=== PATIENT | female | born 1975 | race Caucasian/White ===

== ENCOUNTER 2016-10-29 02:37 | Inpatient (IN) | payer OTHER ==
--- NOTE | 2016-10-29 02:48 | HP ---
COWS - Scale Resting Pulse: 1= [place] 81-100 Sweatin= Beads of Sweat on Face Restless Observation: 3= Extraneous Movement Pupil Size: 1= Pupils >than Normal Bone or Joint Aches: 4=Acute Joint/Muscle Pain Runny Nose/ Eye Tearin= Runny Nose/Eyes GI Upset > 30mins: 2= Nausea/Diarrhea Tremor Observation: 2= Slight Tremor Visible Yawning Observation: 0= None Anxiety or Irritability: 2=Irritable/Anxious Goose Flesh Skin: 0=Smooth Skin COWS Score: 20 CIWA Score - CIWA Score Nausea/Vomitin-Mild Nausea/No Vomiting Muscle Tremors: 4-Moderate,w/Arms Extend Anxiety: 4-Mod. Anxious/Guarded Agitation: 4-Moderately Restless Paroxysmal Sweats: 4-Forehead w/Sweat Beads Orientation: 0-Oriented Tacttile Disturbances: 3-Moderate Itch/Numb/Burn Auditory Disturbances: 0-None Visual Disturbances: 0-None Headache: 2-Mild CIWA-Ar Total Score: 22 Admission [facility] - HPI Chief Complaint: WITHDRAWAL SX'S. SEEKING DETOX TXMENT. Allergies/Adverse Reactions: Allergies Allergy/AdvReac Type Severity Reaction Status Date / Time lithium AdvReac Verified 10/29/16 02:42 History of Present Illness: 41 Y.O. FEMALE WITH OPIOID AND ALCOHOLISM HERE FOR DETOX TXMENT. CLIENT LAST HERE 3 YEARS AGO. STATES LAST DETOX 1 YEAR AGO. SHE IS HERE FOR LEGAL REASONS AND HAS A COURT DATE ON 11/03/2016. SHE ALSO REPORTS SHE DOESNT HAVE AN "ALCOHOL PROBLEM" BUT DRINKS 4-5 COCKTAILS 3-4 TIMES A WEEK AND PAST HISTORY OF ALCOHOL DEPENDENCE NOTED. Exam Limitations: No Limitations - Ebola screening Have you traveled outside of the country in the last 21 days: No Have you had contact with anyone from an Ebola affected area: No Have you been sick,other than usual withdrawal symptoms: No Do you have a fever: No - Review of Systems Constitutional: Chills, Loss of Appetite, Malaise, Night Sweats EENT: reports: Nose Congestion Respiratory: reports: No Symptoms reported Cardiac: reports: No Symptoms Reported GI: reports: Constipated, Poor Appetite, Poor Fluid Intake, Abdominal cramping : reports: No Symptoms Reported Musculoskeletal: reports: Back Pain, Neck Pain Integumentary: reports: No Symptoms Reported Neuro: reports: No Symptoms reported Endocrine: reports: No Symptoms Reported Hematology: reports: No Symptoms Reported Psychiatric: reports: other (BIPOLAR) Other Systems: Reviewed and Negative Patient History - Patient Medical History Hx Anemia: Yes (PAST H/O) Hx Asthma: No Hx Chronic Obstructive Pulmonary Disease (COPD): No Hx Cancer: No Hx Cardiac Disorders: No Hx Congestive Heart Failure: No Hx Hypertension: No Hx Hypercholesterolemia: No Hx Pacemaker: No HX Cerebrovascular Accident: No Hx Seizures: No Hx Dementia: No Hx Diabetes: No Hx Gastrointestinal Disorders: No Hx Liver Disease: No Hx Genitourinary Disorders: No Hx Sexually Transmitted Disorders: Yes (chlymidia) Hx Renal Disease (ESRD): No Hx Thyroid Disease: No Hx Human Immunodeficiency Virus (HIV): No Hx Hepatitis C: No Hx Depression: No Hx Suicide Attempt: No Hx Bipolar Disorder: Yes (ON MED MGMT) Hx Schizophrenia: No Other Medical History: DENIES - Patient Surgical History Past Surgical History: Yes Hx Abdominal Surgery: Yes (RUPTURED CYST) Hx Section: No Hx Orthopedic Surgery: Yes (bunion removal-1999) Other Surgical History: ruptured ovarian cyst-2006,TERMINATION OF 2008 Anesthesia Reaction: No - PPD History Previous Implant?: Yes Documented Results: Negative w/proof Implanted On Prior R Admission?: Yes Date: 06/21/14 Results: 0MM PPD to be Administered?: Yes - Reproductive History Patient is a Female of Child Bearing Age (11 -55 yrs old): Yes Last Menstrual Period: 09/25/16 LMP comment: IRREG Patient : No (NEG CG) - Smoking Cessation Smoking history: Current every day smoker Have you smoked in the past 12 months: Yes Aproximately how many cigarettes per day: 20 Cigars Per Day: 0 Hx Chewing Tobacco Use: No Initiated information on smoking cessation: Yes 'Breaking Loose' booklet given: 10/29/16 - Substance & Tx. History Hx Alcohol Use: Yes Hx Substance Use: Yes Substance Use Type: Cocaine, Heroin, Opiates (OPI), Tranquilizers (TCA) Hx Substance Use Treatment: Yes (GUICHO POTTS) - Substances Abused HEROIN Route: Inhalation Frequency: Daily Amount used: 5 BAGS Age of first use: 37 Date of Last Use: 10/28/16 COCKTAILS Route: Oral Frequency: 3-6 times per week Amount used: 4-5 COCKTAILS ( BEERS, WINE COOLERS) Age of first use: 13 Date of Last Use: 10/28/16 COCAINE Route: Inhalation Frequency: Daily Amount used: 1GM Age of first use: 32 Date of Last Use: 10/28/16 OXYCODONE Route: Oral Frequency: 1-3 times last 30 days Amount used: 100MG Age of first use: 37 Date of Last Use: 10/28/16 Family Disease History - Family Disease History Family Disease History: Other: Father (ALCOHOL), Mother (ALCOHOL), Sister ( ALCOHOL) Admission Physical Exam [facility] - Physical General Appearance: Yes: Appropriately Dressed, Tremorous, Sweating, Anxious HEENTM: Yes: EOMI, Normocephalic, Normal Voice, EDUARDO, Pharynx Normal Respiratory: Yes: Chest Non-Tender, Lungs Clear, Normal Breath Sounds, No Respiratory Distress, No Accessory Muscle Use Breast: Yes: Breast Exam Deferred Cardiology: Yes: Regular Rhythm, Regular Rate, S1, S2 Abdominal: Yes: Normal Bowel Sounds, Non Tender, Flat, Soft Genitourinary: Yes: Within Normal Limits Back: Yes: Normal Inspection Musculoskeletal: Yes: full range of Motion, Gait Steady Extremities: Yes: Normal Capillary Refill, Normal Range of Motion, Non-Tender, Tremors Neurological: Yes: resident care associate II-XII NML intact, Fully Oriented, Alert, Motor Strength 5/5 Integumentary: Yes: Normal Color, Dry, Moist Lymphatic: Yes: Within Normal Limits - Diagnostic (1) Nicotine dependence Current Visit: No Status: Acute (2) Alcohol dependence with uncomplicated withdrawal Current Visit: Yes Status: Acute (3) Opioid dependence with withdrawal Current Visit: Yes Status: Acute (4) Cocaine dependence, uncomplicated Current Visit: Yes Status: Acute Cleared for Admission [facility] - Detox or Rehab [facility] Level of Care: Medically Managed Detox Regimen/Protocol: Methadone/Librium [facility] Breath Alcohol Content Breath Alcohol Content: 0 Vital Signs - Vital Signs Vital Signs Refused: No Temperature: 97.2 F Temperature Source: Oral Pulse Rate: 92 Respiratory Rate: 18 Blood Pressure: 114/78 BP Location: Left Arm Blood Pressure Position: Sitting - Height Height: 5 ft 2 in - Weight Weight: 48.988 kg Weight Measurement Method: Standing Scale Body Mass Index (BMI): 19.7 - Bowel Function Bowel Movement: No Urine Pregancy Test - Test Device Lot Number: [id number] Expiration Date: 04/26/18 - Control Horizontal Line in Upper Control Window?: Yes - Result Urine Test Results: Negative- NO Line Present Urine Drug Screen - Test Device Lot Number: [id number] Expiration Date: 05/27/18 - Control Is Test Valid: Yes - Results Drug Screen Negative: No Urine Drug Screen Results: BEN-Cocaine, OPI-Opiates, TCA-Tricyclic Antidepress, OXY-Oxycodone
[2016-10-29 03:03] VITALS: BMI 19.7
[2016-10-29] MEDS ORDERED: NICOTINE POLACRILEX 2 MG GUM BUC PRN (03:04)
[2016-10-29] MEDS ORDERED: MENTHOL/PHENOL 1 EACH UD MM PRN (03:04)
[2016-10-29] MEDS ORDERED: MAGNESIUM CITRATE 300 ML BOTTLE PO PRN (03:04)
[2016-10-29] MEDS ORDERED: chlordiazePOXIDE HCL 25 MG CAPSULE PO PRN (03:04)
[2016-10-29] MEDS ORDERED: P-EPHED 60MG/TRIPROLIDI 2.5MG TABLET PO PRN (03:04)
[2016-10-29] MEDS ORDERED: guaiFENesin/D-METHORPHAN HB 10 ML UNIT-DOSE CUPS PO PRN (03:04)
[2016-10-29] MEDS ORDERED: MAGNESIUM HYDROX 2400MG/30ML ORAL SUSPENSION 30 ML CUP PO PRN (03:04)
[2016-10-29] MEDS ORDERED: LOPERAMIDE HCL 2 MG CAPSULE PO PRN (03:04)
[2016-10-29] MEDS ORDERED: diphenhydrAMINE HCL 50 MG CAPSULE PO PRN (03:04)
[2016-10-29] MEDS ORDERED: ACETAMINOPHEN 325 MG TABLET (FP) PO PRN (03:04)
[2016-10-29] MEDS ORDERED: IBUPROFEN 400 MG TABLET (FP) PO PRN (03:04)
[2016-10-29] MEDS ORDERED: METHADONE HCL 10 MG TABLET (FOR DETOX USE ONLY) PO ONE ×3 (03:04→22:00)
[2016-10-29] MEDS ORDERED: MAG HYDROX/AL HYDROX/SIMETH 30 ML UNIT-DOSE CUP PO PRN (03:04)
[2016-10-29] MEDS: chlordiazePOXIDE HCL 25 MG CAPSULE PO SCH ×4 (04:41→22:25)
[2016-10-29] MEDS ORDERED: chlordiazePOXIDE HCL 25 MG CAPSULE PO SCH (05:00)
[2016-10-29] MEDS: hydrOXYzine PAMOATE 50 MG CAPSULE (FP) PO PRN ×2 (05:38→22:25)
--- NOTE | 2016-10-29 08:11 | CONSULT ---
[facility] Psychiatric Consult - Data Date of interview: 10/29/16 Admission source: [facility] Identifying data: This is 41 years old female with history of Bipolar disorder, intoxicated with: Alcohol, Opioids, Cocaine anhd Nicotine Substance Abuse History: - Smoking Cessation. Smoking history: Current every day smoker. Have you smoked in the past 12 months: Yes. Aproximately how many cigarettes per day: 20. Cigars Per Day: 0. Hx Chewing Tobacco Use: No. Initiated information on smoking cessation: Yes. 'Breaking Loose' booklet given : 10/29/16. - Substance & Tx. History. Hx Alcohol Use: Yes. Hx Substance Use : Yes. Substance Use Type: Cocaine, Heroin, Opiates (OPI), Tranquilizers (TCA) . Hx Substance Use Treatment: Yes (GUICHO POTTS). - Substances Abused. HEROIN. Route: Inhalation. Frequency: Daily. Amount used: 5 BAGS. Age of first use: 37. Date of Last Use: 10/28/16. COCKTAILS. Route: Oral. Frequency: 3-6 times per week. Amount used: 4-5 COCKTAILS ( BEERS, WINE COOLERS ). Age of first use: 13. Date of Last Use: 10/28/16. COCAINE. Route: Inhalation. Frequency: Daily. Amount used: 1GM. Age of first use: 32. Date of Last Use: 10/28/16. OXYCODONE. Route: Oral. Frequency: 1-3 times last 30 days. Amount used: 100MG. Age of first use: 37. Date of Last Use: 10/28/16 Medical History: UTI History Psychiatric History: Patient reports history of Bipolar disorder, reports no history of Psdychiatric hospitalizations, reports history of Taking [place] in the past, refusing to restart Bipolar medications Physical/Sexual Abuse/Trauma History: Denies Additional Comment: Observation. Detox Unit Care Protocol Mental Status Exam - Mental Status Exam Alert and Oriented to: Person Cognitive Function: Fair Patient Appearance: Unkempt Mood: Sad, Withdrawn Affect: Flat Patient Behavior: Sedated Speech Pattern: Delayed Voice Loudness: Mildly Soft/Quiet Thought Process: Circumstantial Thought Disorder: Being Controlled Hallucinations: Denies Suicidal Ideation: Denies Homicidal Ideation: Denies Insight/Judgement: Fair Sleep: Difficulty falling asleep Appetite: Fair Muscle strength/Tone: Mild Hypotonicity Gait/Station: Shuffling Additional Comments: Observation. Detox Unit Care Protocol Psychiatric Findings - Problem List ([place] 1, 2,3) (1) Alcohol dependence with uncomplicated withdrawal Current Visit: Yes Status: Acute (2) Cocaine dependence, uncomplicated Current Visit: Yes Status: Acute (3) Opioid dependence with withdrawal Current Visit: Yes Status: Acute (4) Bipolar disorder Current Visit: No Status: Acute (5) Heroin dependence Current Visit: No Status: Acute (6) Nicotine dependence Current Visit: No Status: Acute (7) Substance induced mood disorder Current Visit: No Status: Acute - Initial Treatment Plan Initial Treatment Plan: Observation. Detox Unit Care Protocol
[2016-10-29 10:13] LABS: MCH 29.6 pg (25.7-33.7); MCHC 33.8 g/dl (32.0-36.0); MEAN CELL VOLUME 87.6 fl (80-96); MEAN PLT VOLUME 7.5 fl (7.5-11.1); PLATELET COUNT 276 K/MM3 (134-434); RDW 14.9 % (11.6-15.6); WHITE BLOOD COUNT 7.6 K/mm3 (4.0-10.0)
[2016-10-29 10:39] LABS: ALBUMIN 3.6 g/dl (3.4-5.0); BILIRUBIN,TOTAL 0.3 mg/dL (0.2-1.0); CALCIUM 9.2 mg/dL (8.5-10.1); CREATININE 1.1 mg/dL (0.55-1.02); TOT PROT 6.6 g/dl (6.4-8.2)
[2016-10-29] MEDS: PRENATAL VITAMINS W/ FOLIC ACID TABLET (FP) PO SCH (11:08)
[2016-10-29] MEDS: NICOTINE 21 MG/24 HOURS TOPICAL PATCH TD SCH (11:08)
[2016-10-29 11:21] LABS: HIV 1 & 2 AB NEGATIVE; HIV 1 AGp24 NEGATIVE
--- NOTE | 2016-10-29 12:07 | PN ---
[facility] CIWA - CIWA Score Nausea/Vomitin-Mild Nausea/No Vomiting Muscle Tremors: 3 Anxiety: 2 Agitation: 0-Normal Activity Paroxysmal Sweats: 4-Forehead w/Sweat Beads Orientation: 3-Disoriented Date>2 days Tacttile Disturbances: 2-Mild Itch/Numbness/Burn Auditory Disturbances: 0-None Visual Disturbances: 2-Mild Sensitivity Headache: 0-None Present CIWA-Ar Total Score: 17 [facility] COWS - Scale Resting Pulse: 0= NV 80 or Below Sweatin=Flushed/Facial Moisture Restless Observation: 0= Sits Still Pupil Size: 0= Normal to Room Light Bone or Joint Aches: 2= Severe Diffuse Aches Runny Nose/ Eye Tearin= Nasal Congestion GI Upset > 30mins: 2= Nausea/Diarrhea Tremor Observation of Outstretched Hands: 2= Slight Tremor Visible Yawning Observation: 1= 1-2x During Session Anxiety or Irritability: 2=Irritable/Anxious Goose Flesh Skin: 3=Piloerection COWS Score: 15 S Progress Note (SOAP) Subjective: Sweating, Tremors, Interrupted sleep, Body Aches, Stomach Cramping, Diarrhea. Objective: Pt. Disoriented about Location and today's day / date. Pt. observed ambulating on unit. 10/29/16 12:04 Vital Signs Temperature 97.7 F 10/29/16 09:37 Pulse Rate 77 10/29/16 09:37 Respiratory Rate 16 10/29/16 09:37 Blood Pressure 98/63 10/29/16 09:37 O2 Sat by Pulse Oximetry (%) Laboratory Last Values WBC 7.6 K/mm3 (4.0-10.0) D 10/29/16 06:45 RBC 3.85 M/mm3 (3.60-5.2) 10/29/16 06:45 Hgb 11.4 GM/dL (10.7-15.3) 10/29/16 06:45 Hct 33.7 % (32.4-45.2) 10/29/16 06:45 MCV 87.6 fl (80-96) 10/29/16 06:45 MCHC 33.8 g/dl (32.0-36.0) 10/29/16 06:45 RDW 14.9 % (11.6-15.6) 10/29/16 06:45 Plt Count 276 K/MM3 (134-434) 10/29/16 06:45 MPV 7.5 fl (7.5-11.1) 10/29/16 06:45 Sodium 140 mmol/L (136-145) 10/29/16 06:45 Potassium 4.2 mmol/L (3.5-5.1) 10/29/16 06:45 Chloride 102 mmol/L (98-107) 10/29/16 06:45 Carbon Dioxide 30 mmol/L (21-32) 10/29/16 06:45 Anion Gap 8 (8-16) 10/29/16 06:45 BUN 22 mg/dL (7-18) H D 10/29/16 06:45 Creatinine 1.1 mg/dL (0.55-1.02) H D 10/29/16 06:45 Creat Clearance w eGFR 55.30 (>60) 10/29/16 06:45 Random Glucose 96 mg/dL (74-106) D 10/29/16 06:45 Calcium 9.2 mg/dL (8.5-10.1) 10/29/16 06:45 Total Bilirubin 0.3 mg/dL (0.2-1.0) D 10/29/16 06:45 AST 18 U/L (15-37) 10/29/16 06:45 ALT 19 U/L (12-78) 10/29/16 06:45 Alkaline Phosphatase 108 U/L (45-117) 10/29/16 06:45 Total Protein 6.6 g/dl (6.4-8.2) 10/29/16 06:45 Albumin 3.6 g/dl (3.4-5.0) 10/29/16 06:45 RPR Titer Nonreactive (NONREACTIVE) 10/29/16 06:45 HIV 1&2 Antibody Screen Negative 10/29/16 06:45 HIV P24 Antigen Negative 10/29/16 06:45 LABS NOTED. UA NOT YET COLLECTED. 10/29/16 12:06 Assessment: 10/29/16 12:05 WITHDRAWAL SYMPTOMS. Plan: CONTINUE DETOX. INCREASE PO FLUIDS. ADVISED PT. TO FOLLOW-UP WITH [facility] AFTER DISCHARGE FROM DETOX FOR GENERAL MEDICAL ASSESSMENT AND FOR ABNORMAL LAB VALUES.
[2016-10-29 14:31] LABS: URINE APPEARANCE CLEAR; URINE BILIRUBIN NEGATIVE (NEGATIVE); URINE BLOOD NEGATIVE (NEGATIVE); URINE COLOR YELLOW; URINE GLUCOSE (UA) NEGATIVE (NEGATIVE); URINE KETONE NEGATIVE (NEGATIVE); URINE NITRITE POSITIVE (NEGATIVE); URINE PROTEIN NEGATIVE (NEGATIVE); URINE UROBILINOGEN NEGATIVE E.U./dl (0.2-1.0)
[2016-10-29 14:32] LABS: URINE LEUK ESTERASE TRACE (NEGATIVE)
[2016-10-29 14:37] LABS: URINE BACTERIA MANY /hpf (NONE SEEN); URINE MUCUS FEW; URINE RBC 4 /hpf (0-3); URINE WBC 14 /hpf (3-5)
--- NOTE | 2016-10-29 17:37 | EKG ---
Test Reason : Blood Pressure : / mmHG Vent. Rate : 068 BPM Atrial Rate : 068 BPM P-R Int : 148 ms QRS Dur : 096 ms QT Int : 412 ms P-R-T Axes : 024 074 053 degrees QTc Int : 438 ms POOR DATA QUALITY, INTERPRETATION MAY BE ADVERSELY AFFECTED NORMAL SINUS RHYTHM WITH SINUS ARRHYTHMIA NORMAL ECG NO PREVIOUS ECGS AVAILABLE Confirmed by SOLOMON CABA MD ([id number]) on 10/29/2016 5:36:29 PM Referred By: Confirmed By:SOLOMON CABA MD
[2016-10-29] MEDS: THIAMINE HCL 100 MG TABLET (FP) PO SCH (22:26)
[2016-10-30] MEDS ORDERED: chlordiazePOXIDE HCL 25 MG CAPSULE PO SCH ×2 (05:00)
[2016-10-30] MEDS: chlordiazePOXIDE 5 MG CAPSULE PO SCH ×4 (06:39→22:22)
[2016-10-30] MEDS ORDERED: METHADONE HCL 5 MG TABLET (FOR DETOX USE ONLY) PO SCH (10:00)
[2016-10-30] MEDS: PRENATAL VITAMINS W/ FOLIC ACID TABLET (FP) PO SCH (10:11)
[2016-10-30] MEDS: NICOTINE 21 MG/24 HOURS TOPICAL PATCH TD SCH (10:12)
--- NOTE | 2016-10-30 10:32 | PN ---
[facility] CIWA - CIWA Score Nausea/Vomitin Muscle Tremors: 3 Anxiety: 3 Agitation: 2 Paroxysmal Sweats: No Perspiration Orientation: 1-Uncertain about Date Tacttile Disturbances: 0-None Auditory Disturbances: 0-None Visual Disturbances: 2-Mild Sensitivity Headache: 0-None Present CIWA-Ar Total Score: 13 [facility] Progress Note (SOAP) Objective: 10/30/16 10:31 Laboratory Tests 10/29/16 10/29/16 10/29/16 06:45 06:45 06:45 WBC 7.6 D RBC 3.85 Hgb 11.4 Hct 33.7 MCV 87.6 MCHC 33.8 RDW 14.9 Plt Count 276 MPV 7.5 Sodium 140 Potassium 4.2 Chloride 102 Carbon Dioxide 30 Anion Gap 8 BUN 22 H D Creatinine 1.1 H D Creat Clearance w eGFR 55.30 Random Glucose 96 D Calcium 9.2 Total Bilirubin 0.3 D AST 18 ALT 19 Alkaline Phosphatase 108 Total Protein 6.6 Albumin 3.6 Urine Color Urine Appearance Urine pH Ur Specific [place] Urine Protein Urine Glucose (UA) Urine Ketones Urine Blood Urine Nitrite Urine Bilirubin Urine Urobilinogen Ur Leukocyte Esterase Urine RBC Urine WBC Ur Epithelial Cells Urine Bacteria Urine Mucus RPR Titer Nonreactive HIV 1&2 Antibody Screen HIV P24 Antigen 10/29/16 10/29/16 06:45 12:20 WBC RBC Hgb Hct MCV MCHC RDW Plt Count MPV Sodium Potassium Chloride Carbon Dioxide Anion Gap BUN Creatinine Creat Clearance w eGFR Random Glucose Calcium Total Bilirubin AST ALT Alkaline Phosphatase Total Protein Albumin Urine Color Yellow Urine Appearance Clear Urine pH 6.0 Ur Specific [place] 1.024 Urine Protein Negative Urine Glucose (UA) Negative Urine Ketones Negative Urine Blood Negative Urine Nitrite Positive Urine Bilirubin Negative Urine Urobilinogen Negative Ur Leukocyte Esterase Trace H Urine RBC 4 Urine WBC 14 Ur Epithelial Cells Rare Urine Bacteria Many Urine Mucus Few RPR Titer HIV 1&2 Antibody Screen Negative HIV P24 Antigen Negative Vital Signs - 24 hr 10/29/16 10/29/16 10/29/16 15:07 15:17 20:26 Temperature 98.4 F 98.4 F 98.1 F Pulse Rate 63 63 74 Respiratory 16 16 18 Rate Blood Pressure 88/57 88/57 101/69 10/29/16 10/30/16 10/30/16 22:37 00:30 03:30 Temperature 98.2 F Pulse Rate 68 Respiratory 16 18 18 Rate Blood Pressure 90/61 10/30/16 06:00 Temperature 97.3 F L Pulse Rate 76 Respiratory 18 Rate Blood Pressure 101/60 Assessment: 10/30/16 10:31 ONGOING WITHDRAWAL BACTERIURIA Plan: CONTINUE DETOX PROTOCOL
[2016-10-30] MEDS: SULFAMETHOXAZOLE/TRIMETHOPRIM 800MG/160MG D.S. TABLET PO SCH ×2 (11:31→22:23)
[2016-10-30] MEDS: THIAMINE HCL 100 MG TABLET (FP) PO SCH (22:23)
[2016-10-31] MEDS ORDERED: chlordiazePOXIDE 5 MG CAPSULE PO SCH (05:00)
[2016-10-31] MEDS ORDERED: diazePAM 5 MG TABLET PO PRN (09:41)
[2016-10-31] MEDS ORDERED: METHADONE HCL 5 MG TABLET (FOR DETOX USE ONLY) PO SCH (10:00)
[2016-10-31] MEDS: PRENATAL VITAMINS W/ FOLIC ACID TABLET (FP) PO SCH (10:43)
[2016-10-31] MEDS: SULFAMETHOXAZOLE/TRIMETHOPRIM 800MG/160MG D.S. TABLET PO SCH (10:44)
[2016-10-31] MEDS: NICOTINE 21 MG/24 HOURS TOPICAL PATCH TD SCH (10:45)
--- NOTE | 2016-10-31 13:56 | PN ---
S Progress Note (SOAP) Subjective: ALERT,IRRITABLE,ANXIOUS,INTERRUPTED SLEEP,PAIN IN THE BODY AND BACK,TREMOR Objective: 10/31/16 13:53 Vital Signs Temperature 97.7 F 10/31/16 10:10 Pulse Rate 63 10/31/16 10:10 Respiratory Rate 16 10/31/16 10:10 Blood Pressure 88/56 10/31/16 10:10 O2 Sat by Pulse Oximetry (%) EKG NSR WITH SINUS ARRHYTHMIA NOMAL ECG 10/31/16 13:55 Assessment: 10/31/16 13:55 10/31/16 13:55 Laboratory Last Values WBC 7.6 K/mm3 (4.0-10.0) D 10/29/16 06:45 RBC 3.85 M/mm3 (3.60-5.2) 10/29/16 06:45 Hgb 11.4 GM/dL (10.7-15.3) 10/29/16 06:45 Hct 33.7 % (32.4-45.2) 10/29/16 06:45 MCV 87.6 fl (80-96) 10/29/16 06:45 MCHC 33.8 g/dl (32.0-36.0) 10/29/16 06:45 RDW 14.9 % (11.6-15.6) 10/29/16 06:45 Plt Count 276 K/MM3 (134-434) 10/29/16 06:45 MPV 7.5 fl (7.5-11.1) 10/29/16 06:45 Sodium 140 mmol/L (136-145) 10/29/16 06:45 Potassium 4.2 mmol/L (3.5-5.1) 10/29/16 06:45 Chloride 102 mmol/L (98-107) 10/29/16 06:45 Carbon Dioxide 30 mmol/L (21-32) 10/29/16 06:45 Anion Gap 8 (8-16) 10/29/16 06:45 BUN 22 mg/dL (7-18) H D 10/29/16 06:45 Creatinine 1.1 mg/dL (0.55-1.02) H D 10/29/16 06:45 Creat Clearance w eGFR 55.30 (>60) 10/29/16 06:45 Random Glucose 96 mg/dL (74-106) D 10/29/16 06:45 Calcium 9.2 mg/dL (8.5-10.1) 10/29/16 06:45 Total Bilirubin 0.3 mg/dL (0.2-1.0) D 10/29/16 06:45 AST 18 U/L (15-37) 10/29/16 06:45 ALT 19 U/L (12-78) 10/29/16 06:45 Alkaline Phosphatase 108 U/L (45-117) 10/29/16 06:45 Total Protein 6.6 g/dl (6.4-8.2) 10/29/16 06:45 Albumin 3.6 g/dl (3.4-5.0) 10/29/16 06:45 Urine Color Yellow 10/29/16 12:20 Urine Appearance Clear 10/29/16 12:20 Urine pH 6.0 (5.0-8.0) 10/29/16 12:20 Ur Specific [place] 1.024 (1.001-1.035) 10/29/16 12:20 Urine Protein Negative (NEGATIVE) 10/29/16 12:20 Urine Glucose (UA) Negative (NEGATIVE) 10/29/16 12:20 Urine Ketones Negative (NEGATIVE) 10/29/16 12:20 Urine Blood Negative (NEGATIVE) 10/29/16 12:20 Urine Nitrite Positive (NEGATIVE) 10/29/16 12:20 Urine Bilirubin Negative (NEGATIVE) 10/29/16 12:20 Urine Urobilinogen Negative E.U./dl (0.2-1.0) 10/29/16 12:20 Ur Leukocyte Esterase Trace (NEGATIVE) H 10/29/16 12:20 Urine RBC 4 /hpf (0-3) 10/29/16 12:20 Urine WBC 14 /hpf (3-5) 10/29/16 12:20 Ur Epithelial Cells Rare /hpf (FEW) 10/29/16 12:20 Urine Bacteria Many /hpf (NONE SEEN) 10/29/16 12:20 Urine Mucus Few 10/29/16 12:20 RPR Titer Nonreactive (NONREACTIVE) 10/29/16 06:45 HIV 1&2 Antibody Screen Negative 10/29/16 06:45 HIV P24 Antigen Negative 10/29/16 06:45 10/31/16 13:55 10/31/16 13:55 WITHDRAWAL SYMPTOM Plan: CONTINUE DETOX
[2016-10-31] MEDS ORDERED: diazePAM 5 MG TABLET PO SCH (14:00)
[2016-10-31 14:46] VITALS: BP 92/65; PULSE 77; TEMP 96.4
--- NOTE | 2016-10-31 18:40 | PN ---
S Progress Note Note: PATIENT DID NOT WANT TO COMPLETE TREATMENT,SEEN BY COUNSELOR,SIGNED RELEASE AMA, DID NOT WANT TO WAIT
--- NOTE | 2016-10-31 18:42 | DS ---
[facility] Detox Discharge Summary Admission Date: 10/29/16 Discharge Date: 10/31/16 - History Present History: Alcohol Dependence, Cocaine Dependence, Opioid Dependence Additional Comments: PATIENT DID NOT WANT TO COMPLETE TREATMENT,SEEN BY COUNSELOR,DID NOT WANT TO WAIT,SIGNED RELEASE AMA Pertinent Past History: NICOTINE DEPENDENCE - Physical Exam Results Vital Signs: Vital Signs Temperature 96.4 F L 10/31/16 14:45 Pulse Rate 77 10/31/16 14:45 Respiratory Rate 16 10/31/16 14:45 Blood Pressure 92/65 10/31/16 14:45 O2 Sat by Pulse Oximetry (%) Pertinent Admission Physical Exam Findings: WITHDRAWAL SYMPTOM - Medication Discharge Medications: Ambulatory Orders Alprazolam [Xanax] 1 - 2 mg PO DAILY 02/22/15 Amphet Asp/Amphet/D-Amphet [Adderall 30 mg Tablet] 30 mg PO DAILY 02/22/15 Nabumetone 500 mg NR TID PRN #20 tablet 02/22/15 Oxycodone HCl/Acetaminophen [Percocet 5-325 mg Tablet] 1 - 2 tab PO Q4H Zolpidem Tartrate [Ambien] 10 mg PO HS 02/22/15 - Diagnosis (1) Alcohol dependence with uncomplicated withdrawal Current Visit: Yes Status: Acute (2) Cocaine dependence, uncomplicated Current Visit: Yes Status: Acute (3) Opioid dependence with withdrawal Current Visit: Yes Status: Acute (4) Bipolar disorder Current Visit: No Status: Acute (5) Urinary tract infection Current Visit: No Status: Acute - AMA Did Patient Leave Against Medical Advice: Yes
[2016-11-01] MEDS ORDERED: chlordiazePOXIDE HCL 10 MG CAPSULE PO SCH (05:00)
[2016-11-01] MEDS ORDERED: METHADONE HCL 10 MG TABLET (FOR DETOX USE ONLY) PO SCH (10:00)
[2016-11-02] MEDS ORDERED: METHADONE HCL 10 MG TABLET (FOR DETOX USE ONLY) PO SCH (06:00)
[2016-11-02] MEDS ORDERED: diazePAM 5 MG TABLET PO SCH (10:00)
[2016-11-04] MEDS ORDERED: diazePAM 5 MG TABLET PO SCH (10:00)
== END 2016-10-31 17:45 | disposition left against medical advice (07) | DRG 770 ==
LOC: YASAS 02:37 → Y6N 03:05
PROVIDERS: ADMIT Internal Medicine Addiction Medicine; ATTEND Internal Medicine Addiction Medicine
PROC: HZ2ZZZZ Detoxification Services for Substance Abuse Treatment (ICD-10-PCS; principal; 2016-10-31)
DX: F11.23 Opioid dependence with withdrawal (principal); F10.230 Alcohol dependence with withdrawal, uncomplicated; F14.20 Cocaine dependence, uncomplicated; F17.210 Nicotine dependence, cigarettes, uncomplicated; F19.24 Other psychoactive substance dependence with psychoactive substance-induced mood disorder; F31.9 Bipolar disorder, unspecified; N39.0 Urinary tract infection, site not specified
CPT/HCPCS: 36415; 80053; 81003; 81015; 85027; 86593; 87389; 93005; 93010

== ENCOUNTER 2019-10-26 02:22 | Emergency (ER) | payer OTHER ==
[2019-10-26 02:56] VITALS: BP 124/72; PULSE 70; TEMP 98; BMI 20.9
--- NOTE | 2019-10-26 03:01 | PDOC ---
Attending Attestation - Resident Resident Name: Cira Richards - ED Attending Attestation I have performed the following: I have examined & evaluated the patient, The case was reviewed & discussed with the resident, I agree w/resident's findings & plan - HPI HPI: 10/26/19 03:00 see resident hpi - Physicial Exam PE: 10/26/19 03:00 see resident exam - Medical Decision Making 10/26/19 03:00 44-year-old female with history of heroin and crack cocaine abuse complaining of swelling and pain to the left armpit Exam consistent with a large abscess in the inferior axillary region Borders are well palpated Plan for incision and drainage, due to patient's high risk category blood cultures will be obtained as well as baseline labs Clindamycin for MRSA coverage as well Due to smaller peripheral lesions in the area patient will be referred to surgery as an outpatient for further management She is afebrile and well-appearing, pending results patient will be discharged home
--- NOTE | 2019-10-26 03:02 | PDOC ---
History of Present Illness - General Stated Complaint: SKIN PROBLEM Time Seen by Provider: 10/26/19 02:43 History Source: Patient Exam Limitations: No Limitations - History of Present Illness Initial Comments: 10/26/19 02:44 Christine Rebolledo is a 44F presenting with an abscess in her left axilla. Patient says she has had pain from boils under her left armpit for months now, initially small but now one has grown in size. Was initially given Abx and told to use warm compresses, not effective. Now here for evaluation as pain is so bad she cannot take it anymore. Also complains of patches of redness in her skin that have been spreading from her arms to her neck and face. Reports snorting heroin and crack, denies IVDA. 0.5ppd smoker, 1-2 drinks every few days. Denies chest pain, SOB, palpitations, abdominal pain, fever/chills, N/V/D. Past History - Past Medical History Allergies/Adverse Reactions: Allergies Allergy/AdvReac Type Severity Reaction Status Date / Time lithium AdvReac Verified 10/26/19 02:54 Home Medications: Ambulatory Orders Alprazolam [Xanax] 1 - 2 mg PO DAILY 02/22/15 Amphet Asp/Amphet/D-Amphet [Adderall 30 mg Tablet] 30 mg PO DAILY 02/22/15 Nabumetone 500 mg NR TID PRN #20 tablet 02/22/15 Oxycodone HCl/Acetaminophen [Percocet 5-325 mg Tablet] 1 - 2 tab PO Q4H Zolpidem Tartrate [Ambien] 10 mg PO HS 02/22/15 Clindamycin [Cleocin -] 300 mg PO Q6HPO #28 capsule 10/26/19 Anemia: Yes (PAST H/O) Asthma: No Cancer: No Cardiac Disorders: No CVA: No COPD: No CHF: No Dementia: No Diabetes: No GI Disorders: No Disorders: No HTN: No Hypercholesterolemia: No Kidney Stones: No Liver Disease: No Psychiatric Problems: Yes (BIPLOR, MULTIPLE PERSONAL DISORDER, ANXIETY, ADD) Seizures: No Thyroid Disease: No - Surgical History Abdominal Surgery: Yes (RUPTURED CYST) Orthopedic Surgery: Yes (bunion removal-1999) - Reproductive History (#): 6 Para: 0 Cervical CA: No Dysfunctional Uterine Bleeding: No Ectopic : No Endometrial CA: No PID: No Polycystic Ovaries: No Tubal Ligation: No - Psycho Social/Smoking Cessation Hx Smoking History: Current every day smoker Have you smoked in the past 12 months: Yes Number of Cigarettes Smoked Daily: 20 Cigars Per Day: 0 'Breaking Loose' booklet given: 10/29/16 Hx Alcohol Use: Yes Drug/Substance Use Hx: Yes Substance Use Type: Cocaine, Heroin, Opiates (OPI), Tranquilizers (TCA) Hx Substance Use Treatment: Yes (GUICHO POTTS) Review of Systems - Review of Systems Able to Perform ROS?: Yes Constitutional: No: Chills, Fever HEENTM: No: Symptoms Reported Respiratory: No: Cough, Shortness of Breath, Wheezing Cardiac (ROS): No: Chest Pain, Lightheadedness, Palpitations, Syncope, Chest Tightness ABD/GI: No: Constipated, Diarrhea, Nausea, Poor Appetite, Poor Fluid Intake, Vomiting : No: Symptoms Reported Musculoskeletal: No: Symptoms Reported Integumentary: Yes: Lesions, Lumps Neurological: No: Symptoms reported Endocrine: No: Symptoms Reported Hematologic/Lymphatic: No: Symptoms Reported All Other Systems: Reviewed and Negative *Physical Exam - Physical Exam General Appearance: Yes: Nourished, Appropriately Dressed. No: Apparent Distress HEENT: positive: EOMI, EDUARDO, Normal ENT Inspection, Normal Voice, Symmetrical, Pharynx Normal. negative: Scleral Icterus (R), Scleral Icterus (L), Pharyngeal Erythema, Tonsillar Exudate, Tonsillar Erythema Neck: positive: Trachea midline, Normal Thyroid, Supple. negative: Tender, Rigid, Lymphadenopathy (R), Lymphadenopathy (L) Respiratory/Chest: positive: Lungs Clear, Normal Breath Sounds. negative: Chest Tender, Respiratory Distress, Accessory Muscle Use, Crackles, Rales, Rhonchi, Stridor, Wheezing Cardiovascular: positive: Regular Rhythm, Regular Rate. negative: Murmur Musculoskeletal: positive: Normal Inspection. negative: CVA Tenderness, Vertebral Tenderness Extremity: positive: Normal Capillary Refill, Normal Inspection, Normal Range of Motion, Pelvis Stable, Other (full ROM to LUE, sensation intact to LT, no motor deficits). negative: Tender Integumentary: positive: Normal Color, Dry, Warm, Other (1.5 inch ovoid abscess with pinpoint pus release from center noted to L axilla beneath smaller bumps, tender to palpation) Neurologic: positive: associate software engineer II-XII NML intact, Fully Oriented, Alert, Normal Mood/ Affect, Normal Response, Motor Strength 5/5. negative: Numbness ED Treatment Course - LABORATORY CBC & Chemistry Diagram: 10/26/19 03:27 10/26/19 03:27 Medical Decision Making - Medical Decision Making 10/26/19 03:06 Patient presents with left axillary abscess without fever/chills, SOB, N/V. VS stable. Abscess will need draining. Also has skin rash consistent with gram+ skin infection such as MRSA. Will cover with clindamycin. Getting CBC/BMP/BC for evaluation of systemic infection. 10/26/19 03:56 Patient tolerated abscess drainage well, giving 800mg Motrin for pain. Got 300mg clindamycin for MRSA coverage/abscess. Wound check in 48 hours, outpatient clinda, surgery f/u. 10/26/19 04:07 Labs notable for: - CMP WNL - BMP WNL Stable for discharge home with 48 hour f/u and surgery referral. Discharge - Discharge Information Problems reviewed: Yes Clinical Impression/Diagnosis: Abscess, Skin infection Condition: Stable Disposition: HOME - Admission No - Additional Discharge Information Prescriptions: Clindamycin [Cleocin -] 300 mg PO Q6HPO #28 capsule - Follow up/Referral Referrals: Kvng Tamayo MD [Staff Physician] - Devante Nix MD [Staff Physician] - Frandy Blandon MD [Staff Physician] - - Patient Discharge Instructions Patient Printed Discharge Instructions: DI for Skin Abscess Additional Instructions: Today you were evaluated for an abscess under your arm. Your abscess was drained. Please keep it open to drain, and you can keep it lightly covered with gauze or other wrapping as it drains over the next few days. Please return in 48 hours for a wound check. Please follow-up with a surgeon and your primary doctor for evaluation of your other abscesses. If you experience any worsening fever, chills, nausea, vomiting, arm pain, or any other new or concerning symptoms, please return to the emergency room. - Post Discharge Activity
[2019-10-26] MEDS ORDERED: CLINDAMYCIN HCL 150 MG CAPSULE (FP) PO ONE (03:05)
[2019-10-26] MEDS ORDERED: LIDOCAINE 1%/EPI 1:100000 (20 ML MULTI DOSE VIAL) IJ ONE (03:14)
[2019-10-26] MEDS ORDERED: LIDOCAINE 1%/EPI 1:100000 (20 ML MULTI DOSE VIAL) ONE ×2 (03:17→03:25)
[2019-10-26] MEDS ORDERED: CLINDAMYCIN HCL 150 MG CAPSULE (FP) ONE (03:24)
[2019-10-26 03:49] LABS: BASO % 0.7 % (0-2.0); EOS % 2.7 % (0-4.5); HEMOGLOBIN 12.2 GM/dL (10.7-15.3); LYMPH % 20.5 % (8-40); MCH 29.1 pg (25.7-33.7); MCHC 32.9 g/dl (32.0-36.0); MEAN CELL VOLUME 88.4 fl (80-96); MEAN PLT VOLUME 7.7 fl (7.5-11.1); MONO % 5.3 % (3.8-10.2); NEUT % 70.8 % (42.8-82.8); PLATELET COUNT 303 K/MM3 (134-434); RBC 4.19 M/mm3 (3.60-5.2); WHITE BLOOD COUNT 9.7 K/mm3 (4.0-10.0)
[2019-10-26] MEDS ORDERED: IBUPROFEN 400 MG TABLET (FP) PO ONE ×2 (03:53→04:04)
[2019-10-26 03:56] LABS: BLOOD UREA NITROGEN 19.6 mg/dL (7-18); CREATININE 0.7 mg/dL (0.55-1.3); POTASSIUM 3.5 mmol/L (3.5-5.1)
== END 2019-10-26 04:29 | disposition home or self-care (01) ==
LOC: JER 02:22
PROC: 0X950ZZ Drainage of Left Axilla, Open Approach (ICD-10-PCS; principal; 2019-10-26)
PROC: 3E023BZ Introduction of Anesthetic Agent into Muscle, Percutaneous Approach (ICD-10-PCS; 2019-10-26)
DX: L02.412 Cutaneous abscess of left axilla (principal); L08.9 Local infection of the skin and subcutaneous tissue, unspecified; F41.9 Anxiety disorder, unspecified; F32.9 Major depressive disorder, single episode, unspecified; Z86.2 Personal history of diseases of the blood and blood-forming organs and certain disorders involving the immune mechanism; Z88.0 Allergy status to penicillin
CPT/HCPCS: 36415; 80048; 85025; 87040; 99282-25

== ENCOUNTER 2020-12-21 18:39 | Inpatient (IN) | payer OTHER ==
[2020-12-21 20:19] VITALS: BMI 21.0
[2020-12-21] MEDS ORDERED: ONDANSETRON *ODT* 4 MG TABLET SL PRN (20:56)
[2020-12-21] MEDS ORDERED: METHADONE HCL 10 MG TABLET (FOR DETOX USE ONLY) PO ONE (20:56)
[2020-12-21] MEDS ORDERED: MAG HYDROX/AL HYDROX/SIMETH 30 ML UNIT-DOSE CUP PO PRN (20:56)
[2020-12-21] MEDS ORDERED: METHOCARBAMOL 500 MG TABLET PO PRN (20:56)
[2020-12-21] MEDS ORDERED: MAGNESIUM HYDROX 2400MG/30ML ORAL SUSPENSION 30 ML CUP PO PRN (20:56)
[2020-12-21] MEDS ORDERED: NICOTINE POLACRILEX 2 MG GUM BUC PRN (20:56)
[2020-12-21] MEDS ORDERED: ACETAMINOPHEN 325 MG TABLET (FP) PO PRN ×2 (20:56)
[2020-12-21] MEDS ORDERED: BISMUTH SUBSALICYLATE 524 MG/30 ML UD PO PRN (20:56)
[2020-12-21] MEDS ORDERED: IBUPROFEN 400 MG TABLET (FP) PO PRN (20:56)
[2020-12-21] MEDS ORDERED: cloNIDine HCL 0.1 MG TABLET PO PRN (20:56)
[2020-12-21] MEDS ORDERED: MENTHOL/PHENOL 1 EACH UD MM PRN (20:56)
[2020-12-21] MEDS ORDERED: MAGNESIUM CITRATE 300 ML BOTTLE PO PRN (20:56)
[2020-12-21] MEDS ORDERED: METHADONE HCL 10 MG TABLET (FOR DETOX USE ONLY) ONE (21:54)
[2020-12-21] MEDS: THIAMINE HCL 100 MG TABLET (FP) PO SCH (23:49)
[2020-12-21] MEDS: MELATONIN 5 MG TABLETS PO SCH (23:49)
[2020-12-22] MEDS ORDERED: METHADONE HCL 10 MG TABLET (FOR DETOX USE ONLY) ONE (09:25)
[2020-12-22] MEDS ORDERED: METHADONE HCL 5 MG TABLET (FOR DETOX USE ONLY) ONE (09:25)
[2020-12-22] MEDS ORDERED: METHADONE (DETOX) 20 MG, METHADONE (DETOX) 5 MG PO ONE (10:00)
[2020-12-22] MEDS: PRENATAL VITAMINS W/ FOLIC ACID TABLET (FP) PO SCH (10:12)
[2020-12-22] MEDS: NICOTINE 21 MG/24 HOURS TOPICAL PATCH TD SCH (10:13)
[2020-12-22 11:47] LABS: HEMATOCRIT 35.3 % (32.4-45.2); MCH 30.4 pg (25.7-33.7); MEAN CELL VOLUME 89.3 fl (80-96); MEAN PLT VOLUME 7.9 fl (7.5-11.1); PLATELET COUNT 276 K/MM3 (134-434); POTASSIUM 3.4 mmol/L (3.5-5.1); RBC 3.95 M/mm3 (3.60-5.2); RDW 12.9 % (11.6-15.6); WHITE BLOOD COUNT 4.6 K/mm3 (4.0-10.0)
[2020-12-22 11:53] LABS: ALBUMIN 3.6 g/dl (3.4-5.0); CALCIUM 8.5 mg/dL (8.5-10.1)
[2020-12-22 11:54] LABS: BLOOD UREA NITROGEN 16.8 mg/dL (7-18)
[2020-12-22 11:57] LABS: CREATININE 0.8 mg/dL (0.55-1.3)
[2020-12-22 11:58] LABS: BILIRUBIN,TOTAL 1.2 mg/dL (0.2-1); TOT PROT 6.3 g/dl (6.4-8.2)
[2020-12-22] MEDS: THIAMINE HCL 100 MG TABLET (FP) PO SCH (22:17)
[2020-12-22] MEDS: MELATONIN 5 MG TABLETS PO SCH (22:17)
[2020-12-23] MEDS: PRENATAL VITAMINS W/ FOLIC ACID TABLET (FP) PO SCH (09:38)
[2020-12-23] MEDS: NICOTINE 21 MG/24 HOURS TOPICAL PATCH TD SCH (09:38)
[2020-12-23] MEDS ORDERED: METHADONE HCL 10 MG TABLET (FOR DETOX USE ONLY) PO ONE (10:00)
[2020-12-23] MEDS ORDERED: POTASSIUM CHLORIDE ORAL LIQUID 20 MEQ/15 ML PO ONE ×2 (12:00→16:00)
[2020-12-23] MEDS: THIAMINE HCL 100 MG TABLET (FP) PO SCH (22:17)
[2020-12-23] MEDS: MELATONIN 5 MG TABLETS PO SCH (22:17)
[2020-12-24] MEDS ORDERED: METHADONE HCL 5 MG TABLET (FOR DETOX USE ONLY) ONE (08:50)
[2020-12-24] MEDS ORDERED: METHADONE HCL 10 MG TABLET (FOR DETOX USE ONLY) ONE (08:50)
[2020-12-24] MEDS ORDERED: METHADONE (DETOX) 10 MG, METHADONE (DETOX) 5 MG PO ONE (10:00)
[2020-12-24] MEDS: NICOTINE 21 MG/24 HOURS TOPICAL PATCH TD SCH (10:18)
[2020-12-24] MEDS: PRENATAL VITAMINS W/ FOLIC ACID TABLET (FP) PO SCH (10:18)
[2020-12-24] MEDS: MELATONIN 5 MG TABLETS PO SCH (22:14)
[2020-12-24] MEDS: THIAMINE HCL 100 MG TABLET (FP) PO SCH (22:14)
[2020-12-25] MEDS ORDERED: METHADONE HCL 10 MG TABLET (FOR DETOX USE ONLY) PO ONE (10:00)
[2020-12-25] MEDS: NICOTINE 21 MG/24 HOURS TOPICAL PATCH TD SCH (11:27)
[2020-12-25] MEDS: PRENATAL VITAMINS W/ FOLIC ACID TABLET (FP) PO SCH (11:27)
[2020-12-25 19:26] VITALS: BP 97/59; PULSE 57; TEMP 97.3
[2020-12-26] MEDS ORDERED: METHADONE HCL 5 MG TABLET (FOR DETOX USE ONLY) PO ONE (06:00)
== END 2020-12-25 18:15 | disposition left against medical advice (07) | DRG 770 ==
LOC: YASAS 18:39 → Y6N 22:13
PROVIDERS: ADMIT Allergy & Immunology; ATTEND Allergy & Immunology
PROC: HZ2ZZZZ Detoxification Services for Substance Abuse Treatment (ICD-10-PCS; principal; 2020-12-21)
DX: F11.23 Opioid dependence with withdrawal (principal); F14.20 Cocaine dependence, uncomplicated; F15.20 Other stimulant dependence, uncomplicated; F17.210 Nicotine dependence, cigarettes, uncomplicated; F31.9 Bipolar disorder, unspecified; F41.9 Anxiety disorder, unspecified; F43.10 Post-traumatic stress disorder, unspecified; Z88.8 Allergy status to other drugs, medicaments and biological substances
CPT/HCPCS: 36415; 80053; 81025; 84132; 85027; 86780; C9803; U0003; U0005

== ENCOUNTER 2021-10-19 01:15 | Emergency (ER) | payer OTHER ==
[2021-10-19 01:21] VITALS: BP 112/74; PULSE 74; TEMP 97.8; BMI 21.0
[2021-10-19] MEDS ORDERED: AMOX TR/POT CLAV 875MG/125MG TABLETS (FP) PO ONE (01:37)
[2021-10-19] MEDS ORDERED: SULFAMETHOXAZOLE/TRIMETHOPRIM 800MG/160MG D.S. TABLET PO ONE (01:37)
[2021-10-19] MEDS ORDERED: SULFAMETHOXAZOLE/TRIMETHOPRIM 800MG/160MG D.S. TABLET ONE (01:39)
[2021-10-19] MEDS ORDERED: AMOX TR/POT CLAV 875MG/125MG TABLETS (FP) ONE (01:39)
== END 2021-10-19 01:45 | disposition home or self-care (01) ==
LOC: FER 01:15
DX: L03.211 Cellulitis of face (principal)
CPT/HCPCS: 99283-25

== ENCOUNTER 2021-10-24 03:33 | Emergency (ER) | payer OTHER ==
[2021-10-24 03:45] VITALS: BMI 21.0
[2021-10-24 03:54] VITALS: BP 108/81; PULSE 114; TEMP 98.4
== END 2021-10-24 04:10 | disposition home or self-care (01) ==
LOC: FER 03:33
DX: Z48.00 Encounter for change or removal of nonsurgical wound dressing (principal)
CPT/HCPCS: 99281-25

== ENCOUNTER 2021-11-28 00:55 | Inpatient (IN) | payer OTHER ==
[2021-11-28 01:33] VITALS: BMI 21.9
[2021-11-28] MEDS ORDERED: MENTHOL/PHENOL 1 EACH UD MM PRN (02:04)
[2021-11-28] MEDS ORDERED: LOPERAMIDE HCL 2 MG CAPSULE PO PRN (02:04)
[2021-11-28] MEDS ORDERED: IBUPROFEN 400 MG TABLET (FP) PO PRN (02:04)
[2021-11-28] MEDS ORDERED: MAG HYDROX/AL HYDROX/SIMETH 30 ML UNIT-DOSE CUP PO PRN (02:04)
[2021-11-28] MEDS ORDERED: ONDANSETRON *ODT* 4 MG TABLET SL PRN (02:04)
[2021-11-28] MEDS ORDERED: NICOTINE 10 MG CARTRIDGE (INHALER) IH PRN (02:04)
[2021-11-28] MEDS ORDERED: BISMUTH SUBSALICYLATE 524 MG/30 ML PO PRN (02:04)
[2021-11-28] MEDS ORDERED: ACETAMINOPHEN 325 MG TABLET (FP) PO PRN ×2 (02:04)
[2021-11-28] MEDS ORDERED: MAGNESIUM CITRATE 300 ML BOTTLE PO PRN (02:04)
[2021-11-28] MEDS ORDERED: MAGNESIUM HYDROX 2400MG/30ML ORAL SUSPENSION 30 ML CUP PO PRN (02:04)
[2021-11-28] MEDS ORDERED: diazePAM 5 MG TABLET PO PRN (09:48)
[2021-11-28] MEDS ORDERED: cloNIDine HCL 0.1 MG TABLET PO PRN (09:48)
[2021-11-28] MEDS ORDERED: CEFUROXIME AXETIL 500 MG TABLET PO SCH (10:00)
[2021-11-28] MEDS: METHOCARBAMOL 500 MG TABLET PO PRN (10:13)
[2021-11-28] MEDS: SULFAMETHOXAZOLE/TRIMETHOPRIM 800MG/160MG D.S. TABLET PO SCH ×2 (10:13→22:42)
[2021-11-28] MEDS: NICOTINE 14 MG/24 HOURS TOPICAL PATCH TD SCH (10:13)
[2021-11-28] MEDS: PRENATAL VITAMINS W/ FOLIC ACID TABLET (FP) PO SCH (10:13)
[2021-11-28] MEDS ORDERED: methaDONE HCL 10 MG TABLET (FOR DETOX USE ONLY) PO ONE (10:15)
[2021-11-28] MEDS: CEFUROXIME AXETIL 250 MG TABLET PO SCH ×2 (14:07→22:42)
[2021-11-28 17:37] LABS: HEMATOCRIT 32.1 % (32.4-45.2); MCH 30.3 pg (25.7-33.7); MCHC 34.2 g/dl (32.0-36.0); MEAN CELL VOLUME 88.4 fl (80-96); MEAN PLT VOLUME 7.6 fl (7.5-11.1); PLATELET COUNT 261 10^3/uL (134-434); RBC 3.64 M/mm3 (3.60-5.2); RDW 13.4 % (11.6-15.6)
[2021-11-28 17:43] LABS: CALCIUM 8.5 mg/dL (8.5-10.1)
[2021-11-28 17:44] LABS: ALBUMIN 3.3 g/dl (3.4-5.0); BLOOD UREA NITROGEN 18.4 mg/dL (7-18)
[2021-11-28 17:47] LABS: CREATININE 0.8 mg/dL (0.55-1.3)
[2021-11-28 17:48] LABS: BILIRUBIN,TOTAL 0.6 mg/dL (0.2-1); TOT PROT 6.1 g/dl (6.4-8.2)
[2021-11-28] MEDS: diazePAM 5 MG TABLET PO PRN (19:05)
[2021-11-28] MEDS: MELATONIN 5 MG TABLETS PO SCH (22:42)
[2021-11-28] MEDS: THIAMINE HCL 100 MG TABLET (FP) PO SCH (22:42)
[2021-11-29] MEDS: diazePAM 5 MG TABLET PO PRN ×2 (04:04→10:51)
[2021-11-29] MEDS ORDERED: methaDONE HCL 10 MG TABLET (FOR DETOX USE ONLY) ONE (09:32)
[2021-11-29] MEDS: SULFAMETHOXAZOLE/TRIMETHOPRIM 800MG/160MG D.S. TABLET PO SCH ×2 (10:50→23:22)
[2021-11-29] MEDS: METHOCARBAMOL 500 MG TABLET PO PRN (10:50)
[2021-11-29] MEDS: PRENATAL VITAMINS W/ FOLIC ACID TABLET (FP) PO SCH (10:50)
[2021-11-29] MEDS: CEFUROXIME AXETIL 250 MG TABLET PO SCH ×2 (10:50→23:23)
[2021-11-29] MEDS: NICOTINE 14 MG/24 HOURS TOPICAL PATCH TD SCH (10:52)
[2021-11-29] MEDS: THIAMINE HCL 100 MG TABLET (FP) PO SCH (23:23)
[2021-11-29] MEDS: MELATONIN 5 MG TABLETS PO SCH (23:23)
[2021-11-30] MEDS: diazePAM 5 MG TABLET PO PRN ×2 (03:20→22:03)
[2021-11-30] MEDS: METHOCARBAMOL 500 MG TABLET PO PRN (09:18)
[2021-11-30] MEDS: PRENATAL VITAMINS W/ FOLIC ACID TABLET (FP) PO SCH (09:18)
[2021-11-30] MEDS: CEFUROXIME AXETIL 250 MG TABLET PO SCH ×2 (09:18→22:01)
[2021-11-30] MEDS: NICOTINE 14 MG/24 HOURS TOPICAL PATCH TD SCH (09:33)
[2021-11-30] MEDS: SULFAMETHOXAZOLE/TRIMETHOPRIM 800MG/160MG D.S. TABLET PO SCH ×2 (09:34→22:01)
[2021-11-30] MEDS ORDERED: methaDONE HCL 10 MG TABLET (FOR DETOX USE ONLY) PO ONE (10:00)
[2021-11-30] MEDS: THIAMINE HCL 100 MG TABLET (FP) PO SCH (22:01)
[2021-11-30] MEDS: MELATONIN 5 MG TABLETS PO SCH (22:03)
[2021-12-01] MEDS: diazePAM 5 MG TABLET PO PRN (03:36)
[2021-12-01 09:50] VITALS: BP 92/59; PULSE 78; TEMP 97.1
[2021-12-01] MEDS ORDERED: CEFUROXIME AXETIL 500 MG TABLET PO SCH (09:57)
[2021-12-01] MEDS: SULFAMETHOXAZOLE/TRIMETHOPRIM 800MG/160MG D.S. TABLET PO SCH (10:54)
[2021-12-02 00:08] LABS: SARS-CoV-2 NAA Not Detected (Not Detected)
[2021-12-02] MEDS ORDERED: methaDONE HCL 10 MG TABLET (FOR DETOX USE ONLY) PO ONE (10:00)
== END 2021-12-01 11:08 | disposition left against medical advice (07) | DRG 770 ==
LOC: YASAS 00:55 → Y6N 03:17
PROVIDERS: ADMIT Allergy & Immunology; ATTEND Allergy & Immunology
PROC: HZ2ZZZZ Detoxification Services for Substance Abuse Treatment (ICD-10-PCS; principal; 2021-11-28)
DX: F11.23 Opioid dependence with withdrawal (principal); F14.20 Cocaine dependence, uncomplicated; F17.210 Nicotine dependence, cigarettes, uncomplicated; F19.24 Other psychoactive substance dependence with psychoactive substance-induced mood disorder; F31.9 Bipolar disorder, unspecified; F41.9 Anxiety disorder, unspecified; F43.10 Post-traumatic stress disorder, unspecified; F32.A Depression, unspecified; L03.211 Cellulitis of face; Z87.440 Personal history of urinary (tract) infections; Z88.8 Allergy status to other drugs, medicaments and biological substances
CPT/HCPCS: 36415; 80053; 81025; 85027; 86780; 93005; 93010; C9803; U0003; U0005

== ENCOUNTER 2023-01-31 06:03 | Emergency (ER) | payer OTHER ==
[2023-01-31 06:25] VITALS: TEMP 98.2; BMI 23.8
[2023-01-31] MEDS ORDERED: ONDANSETRON 4 MG/2 ML VIAL IVPB ONE (08:06)
[2023-01-31] MEDS ORDERED: ACETAMINOPHEN 1000 MG/100 ML BAG IVPB ONE (08:06)
[2023-01-31] MEDS ORDERED: SODIUM CHLORIDE 0.9% 500 ML INFUS.BAG IV ONE (08:08)
[2023-01-31 08:16] LABS: BASO % 0.5 % (0-2.0); EOS % 0.9 % (0-4.5); HEMATOCRIT 31.5 % (32.4-45.2); HEMOGLOBIN 10.9 GM/dL (10.7-15.3); LYMPH % 20.3 % (8-40); MCH 30.3 pg (25.7-33.7); MCHC 34.6 g/dl (32.0-36.0); MEAN CELL VOLUME 87.4 fl (80-96); MEAN PLT VOLUME 7.6 fl (7.5-11.1); MONO % 5.9 % (3.8-10.2); NEUT % 72.4 % (42.8-82.8); PLATELET COUNT 246 10^3/uL (134-434); RDW 14.8 % (11.6-15.6); WHITE BLOOD COUNT 9.2 K/mm3 (4.0-10.0)
[2023-01-31] MEDS ORDERED: ONDANSETRON 4 MG/2 ML VIAL ONE (08:24)
[2023-01-31] MEDS ORDERED: ACETAMINOPHEN INJECTION 100 ML IVPB ONE (08:24)
[2023-01-31 08:39] LABS: ALBUMIN 3.2 g/dl (3.4-5.0); CALCIUM 8.5 mg/dL (8.5-10.1)
[2023-01-31 08:40] LABS: BLOOD UREA NITROGEN 34.7 mg/dL (7-18)
[2023-01-31 08:42] LABS: CREATININE 1.1 mg/dL (0.55-1.3)
[2023-01-31 08:43] LABS: PHOSPHOROUS 3.8 mg/dL (2.5-4.9)
[2023-01-31 08:44] LABS: BILIRUBIN,TOTAL 0.3 mg/dL (0.2-1); TOT PROT 6.3 g/dl (6.4-8.2)
[2023-01-31] MEDS ORDERED: POTASSIUM CHLORIDE TABS 20 MEQ TABLET.ER (FP) PO ONE (09:39)
[2023-01-31] MEDS ORDERED: POTASSIUM CHLORIDE ORAL LIQUID 20 MEQ/15 ML ONE (10:25)
[2023-01-31 12:15] LABS: HIV INTERPRETATION NEGATIVE (NEGATIVE)
[2023-01-31] MEDS ORDERED: NEOMYCIN/POLYMYXIN/BACITRACIN (TRIPLE ANTIBIOTIC) 28 GM OINTMENT TP ONE (13:12)
[2023-01-31] MEDS ORDERED: NEOMYCIN/POLYMYXN/HC OTIC SOLUTION 10 ML BOTTLE ONE (13:47)
[2023-01-31] MEDS ORDERED: BACITRACIN ZINC 15 GM TUBE TOPICAL OINTMENT ONE (13:48)
[2023-01-31] MEDS ORDERED: FLUCONAZOLE 150 MG TABLET PO ONE (14:14)
[2023-01-31] MEDS ORDERED: PERMETHRIN 5% TOPICAL CREAM 60 GM TUBE TP ONE (14:16)
[2023-01-31 14:53] VITALS: BP 92/65; PULSE 70; RESP 17
[2023-01-31 15:09] LABS: EPI CELLS 13 /uL (0-25.1); HYALINE CASTS 25 /uL (0-3.1); PH,URINE 5.5 (5.0-8.0); URINE APPEARANCE CLEAR; URINE BACTERIA 5753 /uL (0-1359); URINE BILIRUBIN NEGATIVE (NEGATIVE); URINE COLOR YELLOW; URINE GLUCOSE (UA) NEGATIVE (NEGATIVE); URINE KETONE NEGATIVE (NEGATIVE); URINE LEUK ESTERASE NEGATIVE (NEGATIVE); URINE NITRITE NEGATIVE (NEGATIVE); URINE PROTEIN 1+ (NEGATIVE); URINE RBC 71 /uL (0-23.9); URINE UROBILINOGEN 0.2 mg/dL (0.2-1.0)
[2023-01-31 15:13] LABS: URINE WBC 382.3 /uL (0-25.8)
== END 2023-01-31 15:03 | disposition home or self-care (01) ==
LOC: JER 06:03
PROC: 3E033NZ Introduction of Analgesics, Hypnotics, Sedatives into Peripheral Vein, Percutaneous Approach (ICD-10-PCS; principal; 2023-01-31)
PROC: 3E033GC Introduction of Other Therapeutic Substance into Peripheral Vein, Percutaneous Approach (ICD-10-PCS; 2023-01-31)
DX: G40.89 Other seizures (principal); R21 Rash and other nonspecific skin eruption; Z20.822 Contact with and (suspected) exposure to COVID-19
CPT/HCPCS: 0241U-QW; 36415; 70450-TC; 71045-TC-FY; 80053; 81003; 83690; 83735; 84100; 84484; 85025; 87086; 87186; 87389; 87491; 87591; 87661; 93005; 93010; 99285-25

== ENCOUNTER 2023-02-04 20:41 | Inpatient (IN) | payer OTHER ==
[2023-02-04 22:54] VITALS: BMI 18.3
[2023-02-05] MEDS ORDERED: ONDANSETRON *ODT* 4 MG TABLET SL PRN (00:20)
[2023-02-05] MEDS ORDERED: NALOXONE HCL (KLOXXADO) 8 MG SPRAY NS PRN (00:20)
[2023-02-05] MEDS ORDERED: BISMUTH SUBSALICYLATE 524 MG/30 ML PO PRN (00:20)
[2023-02-05] MEDS ORDERED: POLYETHYLENE GLYCOL (HEALTHYLAX) 3350 17 GM PACKET PO PRN (00:20)
[2023-02-05] MEDS ORDERED: guaiFENesin 600 MG TABLET.ER (FP) PO PRN (00:20)
[2023-02-05] MEDS ORDERED: ACETAMINOPHEN 325 MG TABLET (FP) PO PRN (00:20)
[2023-02-05] MEDS ORDERED: BENZONATATE 200 MG CAPSULE PO PRN (00:20)
[2023-02-05] MEDS ORDERED: MAG HYDROX/AL HYDROX/SIMETH 30 ML UNIT-DOSE CUP PO PRN (00:20)
[2023-02-05] MEDS ORDERED: IBUPROFEN 400 MG TABLET (FP) PO PRN (00:20)
[2023-02-05] MEDS ORDERED: NALOXONE HCL 0.4 MG/ML VIAL IM PRN (00:20)
[2023-02-05] MEDS ORDERED: DICYCLOMINE HCL 10 MG CAPSULE PO PRN (00:20)
[2023-02-05] MEDS ORDERED: hydrOXYzine PAMOATE 25 MG CAPSULE (FP) PO PRN (00:20)
[2023-02-05] MEDS ORDERED: LOPERAMIDE HCL 2 MG CAPSULE PO PRN (00:20)
[2023-02-05] MEDS ORDERED: IBUPROFEN 600 MG TABLET (FP) PO PRN (00:20)
[2023-02-05] MEDS ORDERED: BENZOCAINE/MENTHOL (CHLORASEPTIC ) LOZENGE MM PRN (00:20)
[2023-02-05] MEDS ORDERED: MAGNESIUM HYDROX 2400MG/30ML ORAL SUSPENSION 30 ML CUP PO PRN (00:20)
[2023-02-05] MEDS ORDERED: NICOTINE POLACRILEX 2 MG GUM BUC PRN (00:20)
[2023-02-05] MEDS ORDERED: cloNIDine HCL 0.1 MG TABLET PO PRN (09:25)
[2023-02-05] MEDS ORDERED: methaDONE HCL 10 MG TABLET (FOR DETOX USE ONLY) PO ONE (10:00)
[2023-02-05] MEDS: NICOTINE 14 MG/24 HOURS TOPICAL PATCH TD SCH (10:01)
[2023-02-05] MEDS: PRENATAL VITAMINS W/ FOLIC ACID TABLET (FP) PO SCH (10:01)
[2023-02-05 13:53] LABS: HEMATOCRIT 30.5 % (32.4-45.2); HEMOGLOBIN 10.4 GM/dL (10.7-15.3); MCH 30.4 pg (25.7-33.7); MCHC 34.1 g/dl (32.0-36.0); MEAN CELL VOLUME 89.1 fl (80-96); PLATELET COUNT 250 10^3/uL (134-434); RBC 3.42 M/mm3 (3.60-5.2); RDW 14.6 % (11.6-15.6); WHITE BLOOD COUNT 4.7 K/mm3 (4.0-10.0)
[2023-02-05 15:01] LABS: POTASSIUM 3.4 mmol/L (3.5-5.1)
[2023-02-05 15:03] LABS: CALCIUM 8.7 mg/dL (8.5-10.1)
[2023-02-05 15:04] LABS: ALBUMIN 2.9 g/dl (3.4-5.0); BLOOD UREA NITROGEN 27.2 mg/dL (7-18)
[2023-02-05 15:07] LABS: CREATININE 0.7 mg/dL (0.55-1.3); HIV INTERPRETATION NEGATIVE (NEGATIVE)
[2023-02-05 15:08] LABS: BILIRUBIN,TOTAL 0.2 mg/dL (0.2-1)
[2023-02-05 15:09] LABS: TOT PROT 5.6 g/dl (6.4-8.2)
[2023-02-05] MEDS: METHOCARBAMOL 500 MG TABLET PO PRN (17:27)
[2023-02-05] MEDS ORDERED: MELATONIN 5 MG TABLETS PO SCH (22:00)
[2023-02-05] MEDS: MIRTAZAPINE 15 MG TABLET (FP) PO SCH (22:22)
[2023-02-05] MEDS: THIAMINE HCL 100 MG TABLET (FP) PO SCH (22:22)
[2023-02-06] MEDS: PRENATAL VITAMINS W/ FOLIC ACID TABLET (FP) PO SCH (10:18)
[2023-02-06] MEDS: NICOTINE 14 MG/24 HOURS TOPICAL PATCH TD SCH (10:20)
[2023-02-06] MEDS ORDERED: POTASSIUM CHLORIDE ORAL LIQUID 20 MEQ/15 ML PO ONE (11:42)
[2023-02-06] MEDS: THIAMINE HCL 100 MG TABLET (FP) PO SCH (22:14)
[2023-02-06] MEDS: MIRTAZAPINE 15 MG TABLET (FP) PO SCH (22:14)
[2023-02-06] MEDS: METHOCARBAMOL 500 MG TABLET PO PRN (22:16)
[2023-02-07] MEDS ORDERED: methaDONE HCL 10 MG TABLET (FOR DETOX USE ONLY) PO ONE (10:00)
[2023-02-07] MEDS: PRENATAL VITAMINS W/ FOLIC ACID TABLET (FP) PO SCH (10:05)
[2023-02-07] MEDS: NICOTINE 14 MG/24 HOURS TOPICAL PATCH TD SCH (10:07)
[2023-02-07] MEDS: THIAMINE HCL 100 MG TABLET (FP) PO SCH (22:18)
[2023-02-07] MEDS: MIRTAZAPINE 15 MG TABLET (FP) PO SCH (22:18)
[2023-02-07] MEDS: METHOCARBAMOL 500 MG TABLET PO PRN (22:18)
[2023-02-08] MEDS: NICOTINE 14 MG/24 HOURS TOPICAL PATCH TD SCH (09:52)
[2023-02-08] MEDS: PRENATAL VITAMINS W/ FOLIC ACID TABLET (FP) PO SCH (09:52)
[2023-02-08] MEDS: THIAMINE HCL 100 MG TABLET (FP) PO SCH (21:35)
[2023-02-08] MEDS: MIRTAZAPINE 15 MG TABLET (FP) PO SCH (21:35)
[2023-02-09] MEDS ORDERED: methaDONE HCL 10 MG TABLET (FOR DETOX USE ONLY) PO ONE (10:00)
[2023-02-09] MEDS: NICOTINE 14 MG/24 HOURS TOPICAL PATCH TD SCH (10:24)
[2023-02-09] MEDS: PRENATAL VITAMINS W/ FOLIC ACID TABLET (FP) PO SCH (10:24)
[2023-02-09 21:36] VITALS: TEMP 97.7
[2023-02-09] MEDS: THIAMINE HCL 100 MG TABLET (FP) PO SCH (21:44)
[2023-02-09] MEDS: MIRTAZAPINE 15 MG TABLET (FP) PO SCH (21:44)
[2023-02-09] MEDS: METHOCARBAMOL 500 MG TABLET PO PRN (21:45)
[2023-02-10 10:33] VITALS: BP 100/61; PULSE 64; RESP 18
[2023-02-10] MEDS: PRENATAL VITAMINS W/ FOLIC ACID TABLET (FP) PO SCH (10:42)
[2023-02-10] MEDS: NICOTINE 14 MG/24 HOURS TOPICAL PATCH TD SCH (10:43)
== END 2023-02-10 10:25 | disposition home or self-care (01) | DRG 773 ==
LOC: YASAS 20:41 → Y3N 02-05 02:26 → UNDOADMIN 02-05 02:26
PROVIDERS: ADMIT Allergy & Immunology; ATTEND Surgery
PROC: HZ2ZZZZ Detoxification Services for Substance Abuse Treatment (ICD-10-PCS; principal; 2023-02-05)
DX: F11.23 Opioid dependence with withdrawal (principal); F14.20 Cocaine dependence, uncomplicated; F17.210 Nicotine dependence, cigarettes, uncomplicated; F19.282 Other psychoactive substance dependence with psychoactive substance-induced sleep disorder; F42.4 Excoriation (skin-picking) disorder; E87.5 Hyperkalemia; R56.9 Unspecified convulsions; R79.89 Other specified abnormal findings of blood chemistry; Z86.59 Personal history of other mental and behavioral disorders; Z88.8 Allergy status to other drugs, medicaments and biological substances; Z28.310 Unvaccinated for COVID-19; Z28.9 Immunization not carried out for unspecified reason
CPT/HCPCS: 36415; 80053; 81025; 83036; 84132; 85027; 86780; 87389; C9803-CS; U0003; U0005

== ENCOUNTER 2023-02-26 11:13 | Emergency (ER) | payer OTHER ==
[2023-02-26] MEDS ORDERED: NALOXONE HCL 0.4 MG/ML VIAL IVPUSH ONE ×3 (11:17→12:06)
[2023-02-26] MEDS ORDERED: NALOXONE HCL 0.4 MG/ML VIAL ONE ×2 (11:19→12:05)
[2023-02-26 11:47] VITALS: BP 128/73; TEMP 98.4; BMI 25.6
[2023-02-26 13:02] VITALS: PULSE 76; RESP 10
== END 2023-02-26 16:19 | disposition home or self-care (01) ==
LOC: JER 11:13
PROC: 3E033GC Introduction of Other Therapeutic Substance into Peripheral Vein, Percutaneous Approach (ICD-10-PCS; principal; 2023-02-26)
PROC: 3E033GC Introduction of Other Therapeutic Substance into Peripheral Vein, Percutaneous Approach (ICD-10-PCS; 2023-02-26)
DX: T40.2X1A Poisoning by other opioids, accidental (unintentional), initial encounter (principal); F11.20 Opioid dependence, uncomplicated
CPT/HCPCS: 70450-TC; 99284-25

== ENCOUNTER 2023-03-03 09:00 | Inpatient (IN) | payer OTHER ==
[2023-03-03 09:28] VITALS: BMI 20.1
[2023-03-03] MEDS ORDERED: NALOXONE HCL (KLOXXADO) 8 MG SPRAY NS PRN (10:09)
[2023-03-03] MEDS ORDERED: BENZONATATE 200 MG CAPSULE PO PRN (10:09)
[2023-03-03] MEDS ORDERED: IBUPROFEN 400 MG TABLET (FP) PO PRN (10:09)
[2023-03-03] MEDS ORDERED: cloNIDine HCL 0.1 MG TABLET PO ONE (10:09)
[2023-03-03] MEDS ORDERED: BUPRENORPHINE HCL 150 MCG, BUPRENORPHINE HCL 75 MCG BC PRN (10:09)
[2023-03-03] MEDS ORDERED: NALOXONE HCL 0.4 MG/ML VIAL IM PRN (10:09)
[2023-03-03] MEDS ORDERED: IBUPROFEN 600 MG TABLET (FP) PO PRN (10:09)
[2023-03-03] MEDS ORDERED: ACETAMINOPHEN 325 MG TABLET (FP) PO PRN (10:09)
[2023-03-03] MEDS ORDERED: POLYETHYLENE GLYCOL (HEALTHYLAX) 3350 17 GM PACKET PO PRN (10:09)
[2023-03-03] MEDS ORDERED: DICYCLOMINE HCL 10 MG CAPSULE PO PRN (10:09)
[2023-03-03] MEDS ORDERED: ONDANSETRON *ODT* 4 MG TABLET SL PRN (10:09)
[2023-03-03] MEDS ORDERED: BISMUTH SUBSALICYLATE 262 MG/15 ML BTL PO PRN (10:09)
[2023-03-03] MEDS ORDERED: BUPRENORPHINE HCL 150 MCG, BUPRENORPHINE HCL 75 MCG BC ONE (10:09)
[2023-03-03] MEDS ORDERED: MAGNESIUM HYDROX 2400MG/30ML ORAL SUSPENSION 30 ML CUP PO PRN (10:09)
[2023-03-03] MEDS ORDERED: guaiFENesin 600 MG TABLET.ER (FP) PO PRN (10:09)
[2023-03-03] MEDS ORDERED: NICOTINE 10 MG CARTRIDGE (INHALER) IH PRN (10:09)
[2023-03-03] MEDS ORDERED: LOPERAMIDE HCL 2 MG CAPSULE PO PRN (10:09)
[2023-03-03] MEDS ORDERED: MAG HYDROX/AL HYDROX/SIMETH 30 ML UNIT-DOSE CUP PO PRN (10:09)
[2023-03-03] MEDS ORDERED: BENZOCAINE/MENTHOL (CHLORASEPTIC ) LOZENGE MM PRN (10:09)
[2023-03-03] MEDS ORDERED: BUPRENORPHINE HCL 75 MCG FILM BC ONE (11:10)
[2023-03-03] MEDS ORDERED: BUPRENORPHINE HCL 150 MCG FILM BC ONE (11:10)
[2023-03-03] MEDS ORDERED: PRENATAL VITAMINS W/ FOLIC ACID TABLET (FP) PO ONE (11:11)
[2023-03-03] MEDS: PRENATAL VITAMINS W/ FOLIC ACID TABLET (FP) PO SCH (11:20)
[2023-03-03] MEDS: METHOCARBAMOL 500 MG TABLET PO PRN (12:14)
[2023-03-03] MEDS ORDERED: cloNIDine HCL 0.1 MG TABLET PO PRN (14:09)
[2023-03-03 15:15] LABS: HEMATOCRIT 31.3 % (32.4-45.2); HEMOGLOBIN 10.4 GM/dL (10.7-15.3); MCH 29.5 pg (25.7-33.7); MCHC 33.2 g/dl (32.0-36.0); MEAN CELL VOLUME 88.8 fl (80-96); MEAN PLT VOLUME 7.5 fl (7.5-11.1); PLATELET COUNT 253 10^3/uL (134-434); RBC 3.52 M/mm3 (3.60-5.2); RDW 14.8 % (11.6-15.6); WHITE BLOOD COUNT 9.4 K/mm3 (4.0-10.0)
[2023-03-03 15:42] LABS: POTASSIUM 3.3 mmol/L (3.5-5.1)
[2023-03-03 15:47] LABS: ALBUMIN 3.9 g/dl (3.4-5.0); BLOOD UREA NITROGEN 26.7 mg/dL (7-18)
[2023-03-03 15:49] LABS: CALCIUM 9.2 mg/dL (8.5-10.1)
[2023-03-03 15:51] LABS: BILIRUBIN,TOTAL 1.4 mg/dL (0.2-1)
[2023-03-03 15:52] LABS: CREATININE 0.7 mg/dL (0.55-1.3); TOT PROT 7.2 g/dl (6.4-8.2)
[2023-03-03] MEDS: diazePAM 5 MG TABLET PO PRN (18:02)
[2023-03-03] MEDS: hydrOXYzine PAMOATE 25 MG CAPSULE (FP) PO PRN (20:01)
[2023-03-03] MEDS: THIAMINE HCL 100 MG TABLET (FP) PO SCH (22:44)
[2023-03-03] MEDS: MELATONIN 5 MG TABLETS PO SCH (22:44)
[2023-03-04] MEDS ORDERED: BUPRENORPHINE HCL 150 MCG, BUPRENORPHINE HCL 75 MCG BC PRN
[2023-03-04] MEDS: BUPRENORPHINE HCL 150 MCG, BUPRENORPHINE HCL 75 MCG BC SCH ×2 (05:35→17:56)
[2023-03-04] MEDS: PRENATAL VITAMINS W/ FOLIC ACID TABLET (FP) PO SCH (10:21)
[2023-03-04] MEDS: diazePAM 5 MG TABLET PO PRN ×2 (10:21→22:35)
[2023-03-04] MEDS: NICOTINE 14 MG/24 HOURS TOPICAL PATCH TD SCH (10:23)
[2023-03-04] MEDS ORDERED: POTASSIUM CHLORIDE ORAL LIQUID 20 MEQ/15 ML PO ONE ×3 (11:00→19:00)
[2023-03-04] MEDS: MELATONIN 5 MG TABLETS PO SCH (22:36)
[2023-03-04] MEDS: THIAMINE HCL 100 MG TABLET (FP) PO SCH (22:36)
[2023-03-05] MEDS: BUPRENORPHINE HCL 450 MCG FILM BC SCH ×2 (05:30→18:59)
[2023-03-05] MEDS: hydrOXYzine PAMOATE 25 MG CAPSULE (FP) PO PRN ×2 (10:13→22:40)
[2023-03-05] MEDS: METHOCARBAMOL 500 MG TABLET PO PRN ×2 (10:14→22:40)
[2023-03-05] MEDS: PRENATAL VITAMINS W/ FOLIC ACID TABLET (FP) PO SCH (10:14)
[2023-03-05] MEDS: NICOTINE 14 MG/24 HOURS TOPICAL PATCH TD SCH (10:14)
[2023-03-05] MEDS ORDERED: diazePAM 5 MG TABLET PO ONE (11:41)
[2023-03-05] MEDS: THIAMINE HCL 100 MG TABLET (FP) PO SCH (22:37)
[2023-03-05] MEDS: MELATONIN 5 MG TABLETS PO SCH (22:37)
[2023-03-06] MEDS: BUPRENORPHINE/NALOXONE 4 MG/1 MG FILM PACKET SL SCH ×2 (06:29→17:26)
[2023-03-06] MEDS: PRENATAL VITAMINS W/ FOLIC ACID TABLET (FP) PO SCH (10:23)
[2023-03-06] MEDS: NICOTINE 14 MG/24 HOURS TOPICAL PATCH TD SCH (10:23)
[2023-03-06] MEDS ORDERED: diazePAM 5 MG TABLET PO ONE (11:23)
[2023-03-06 17:33] VITALS: TEMP 97.3
[2023-03-06 18:10] VITALS: BP 113/72; PULSE 84; RESP 16
[2023-03-06] MEDS: hydrOXYzine PAMOATE 25 MG CAPSULE (FP) PO PRN (18:18)
[2023-03-07] MEDS ORDERED: BUPRENORPHINE/NALOXONE 8 MG/2 MG FILM PACKET SL ONE (06:00)
== END 2023-03-06 19:25 | disposition left against medical advice (07) | DRG 770 ==
LOC: YASAS 09:00 → Y6N 11:05
PROVIDERS: ADMIT Allergy & Immunology; ATTEND Surgery
PROC: HZ2ZZZZ Detoxification Services for Substance Abuse Treatment (ICD-10-PCS; principal; 2023-03-03)
DX: F11.23 Opioid dependence with withdrawal (principal); F14.20 Cocaine dependence, uncomplicated; F17.210 Nicotine dependence, cigarettes, uncomplicated; F31.9 Bipolar disorder, unspecified; F43.10 Post-traumatic stress disorder, unspecified; F44.81 Dissociative identity disorder; E87.6 Hypokalemia; Z86.59 Personal history of other mental and behavioral disorders; Z88.8 Allergy status to other drugs, medicaments and biological substances; Z28.310 Unvaccinated for COVID-19; Z28.9 Immunization not carried out for unspecified reason
CPT/HCPCS: 36415; 80053; 81025; 84132; 84520; 85027; 86780; 87635; 87811

== ENCOUNTER 2023-08-21 12:34 | Inpatient (IN) | payer OTHER ==
[2023-08-21 17:33] VITALS: BMI 24.3
[2023-08-21] MEDS ORDERED: MAG HYDROX/AL HYDROX/SIMETH 30 ML UNIT-DOSE CUP PO PRN (18:27)
[2023-08-21] MEDS ORDERED: POLYETHYLENE GLYCOL (HEALTHYLAX) 3350 17 GM PACKET PO PRN (18:27)
[2023-08-21] MEDS ORDERED: MAGNESIUM HYDROX 2400MG/30ML ORAL SUSPENSION 30 ML CUP PO PRN (18:27)
[2023-08-21] MEDS ORDERED: NICOTINE POLACRILEX 4 MG GUM BUC PRN (18:27)
[2023-08-21] MEDS ORDERED: NALOXONE HCL 0.4 MG/ML VIAL IM PRN (18:27)
[2023-08-21] MEDS ORDERED: ONDANSETRON *ODT* 4 MG TABLET SL PRN (18:27)
[2023-08-21] MEDS ORDERED: IBUPROFEN 400 MG TABLET (FP) PO PRN (18:27)
[2023-08-21] MEDS ORDERED: BENZOCAINE/MENTHOL (CHLORASEPTIC ) LOZENGE MM PRN (18:27)
[2023-08-21] MEDS ORDERED: guaiFENesin 600 MG TABLET.ER (FP) PO PRN (18:27)
[2023-08-21] MEDS ORDERED: NALOXONE HCL (KLOXXADO) 8 MG SPRAY NS PRN (18:27)
[2023-08-21] MEDS ORDERED: BISMUTH SUBSALICYLATE 524 MG/30 ML PO PRN (18:27)
[2023-08-21] MEDS ORDERED: BENZONATATE 200 MG CAPSULE PO PRN (18:27)
[2023-08-21] MEDS ORDERED: LOPERAMIDE HCL 2 MG CAPSULE PO PRN (18:27)
[2023-08-21] MEDS ORDERED: DICYCLOMINE HCL 10 MG CAPSULE PO PRN (18:27)
[2023-08-21] MEDS ORDERED: BACITRACIN ZINC 15 GM TUBE TOPICAL OINTMENT TP SCH (18:45)
[2023-08-21] MEDS: THIAMINE HCL 100 MG TABLET (FP) PO SCH (22:33)
[2023-08-21] MEDS: MELATONIN 5 MG TABLETS PO SCH (22:33)
[2023-08-21] MEDS: hydrOXYzine PAMOATE 25 MG CAPSULE (FP) PO PRN (22:33)
[2023-08-22] MEDS: DOXYCYCLINE HYCLATE 100 MG CAPSULE PO SCH ×2 (09:24→17:26)
[2023-08-22] MEDS: BACITRACIN 0.9 GM PACKET TP SCH (09:24)
[2023-08-22] MEDS: NICOTINE 14 MG/24 HOURS TOPICAL PATCH TD SCH (09:27)
[2023-08-22] MEDS ORDERED: PRENATAL VITAMINS W/ FOLIC ACID TABLET (FP) PO SCH (10:00)
[2023-08-22 10:51] LABS: HEMATOCRIT 31.4 % (32.4-45.2); HEMOGLOBIN 10.5 GM/dL (10.7-15.3); MCH 28.6 pg (25.7-33.7); MCHC 33.4 g/dl (32.0-36.0); MEAN CELL VOLUME 85.6 fl (80-96); MEAN PLT VOLUME 6.7 fl (7.5-11.1); PLATELET COUNT 486 10^3/uL (134-434); RBC 3.67 M/mm3 (3.60-5.2); RDW 15.2 % (11.6-15.6)
[2023-08-22 10:53] LABS: CHLORIDE 106 mmol/L (98-107); POTASSIUM 3.2 mmol/L (3.5-5.1); SODIUM 143 mmol/L (136-145)
[2023-08-22 10:56] LABS: CALCIUM 8.5 mg/dL (8.5-10.1)
[2023-08-22 10:57] LABS: ALBUMIN 2.7 g/dl (3.4-5.0); ANION GAP 4 mmol/L (4-13); BLOOD UREA NITROGEN 20.5 mg/dL (7-18); CO2 32 mmol/L (21-32); GLUCOSE,RANDOM 105 mg/dL (74-106)
[2023-08-22 11:00] LABS: CREATININE 0.8 mg/dL (0.55-1.3); SGOT/AST 14 U/L (15-37); SGPT/ALT 16 U/L (13-61)
[2023-08-22 11:01] LABS: BILIRUBIN,TOTAL 0.4 mg/dL (0.2-1)
[2023-08-22 11:03] LABS: ALK PHOS 156 U/L (45-117)
[2023-08-22] MEDS: PRENATAL VITAMINS W/ FOLIC ACID TABLET (FP) PO SCH (11:41)
[2023-08-22] MEDS ORDERED: methaDONE HCL 10 MG TABLET (FOR DETOX USE ONLY) PO ONE (12:08)
[2023-08-22] MEDS: POTASSIUM CHLORIDE ORAL LIQUID 20 MEQ/15 ML PO SCH (12:27)
[2023-08-22] MEDS: IBUPROFEN 600 MG TABLET (FP) PO PRN (17:34)
[2023-08-22] MEDS: hydrOXYzine PAMOATE 25 MG CAPSULE (FP) PO PRN (17:36)
[2023-08-22] MEDS ORDERED: diazePAM 5 MG TABLET PO ONE (18:23)
[2023-08-22] MEDS: MIRTAZAPINE 15 MG TABLET (FP) PO SCH (22:15)
[2023-08-22] MEDS: THIAMINE HCL 100 MG TABLET (FP) PO SCH (22:15)
[2023-08-22] MEDS: MELATONIN 5 MG TABLETS PO SCH (22:15)
[2023-08-22] MEDS: ACETAMINOPHEN 325 MG TABLET (FP) PO PRN (22:17)
[2023-08-23] MEDS: hydrOXYzine PAMOATE 25 MG CAPSULE (FP) PO PRN (01:37)
[2023-08-23] MEDS: POTASSIUM CHLORIDE ORAL LIQUID 20 MEQ/15 ML PO SCH (10:18)
[2023-08-23] MEDS: NICOTINE 14 MG/24 HOURS TOPICAL PATCH TD SCH (10:18)
[2023-08-23] MEDS: BACITRACIN 0.9 GM PACKET TP SCH (10:18)
[2023-08-23] MEDS: diazePAM 5 MG TABLET PO PRN ×3 (10:28→22:55)
[2023-08-23] MEDS: ACETAMINOPHEN 325 MG TABLET (FP) PO PRN (10:30)
[2023-08-23] MEDS: PRENATAL VITAMINS W/ FOLIC ACID TABLET (FP) PO SCH (11:06)
[2023-08-23] MEDS: DOXYCYCLINE HYCLATE 100 MG CAPSULE PO SCH (12:14)
[2023-08-23] MEDS ORDERED: DOXYCYCLINE HYCLATE 100 MG TABLET PO ONE (12:15)
[2023-08-23] MEDS: DOXYCYCLINE HYCLATE 100 MG TABLET PO SCH (17:29)
[2023-08-23] MEDS: IBUPROFEN 600 MG TABLET (FP) PO PRN (17:31)
[2023-08-23] MEDS: MIRTAZAPINE 15 MG TABLET (FP) PO SCH (22:54)
[2023-08-23] MEDS: THIAMINE HCL 100 MG TABLET (FP) PO SCH (22:55)
[2023-08-23] MEDS: MELATONIN 5 MG TABLETS PO SCH (22:55)
[2023-08-24] MEDS: DOXYCYCLINE HYCLATE 100 MG TABLET PO SCH ×2 (05:40→17:32)
[2023-08-24] MEDS: hydrOXYzine PAMOATE 25 MG CAPSULE (FP) PO PRN (08:58)
[2023-08-24] MEDS: POTASSIUM CHLORIDE ORAL LIQUID 20 MEQ/15 ML PO SCH (09:14)
[2023-08-24] MEDS: BACITRACIN 0.9 GM PACKET TP SCH (09:16)
[2023-08-24] MEDS: NICOTINE 14 MG/24 HOURS TOPICAL PATCH TD SCH (09:17)
[2023-08-24] MEDS ORDERED: methaDONE HCL 10 MG TABLET (FOR DETOX USE ONLY) PO ONE (10:00)
[2023-08-24] MEDS: PRENATAL VITAMINS W/ FOLIC ACID TABLET (FP) PO SCH (11:12)
[2023-08-24] MEDS: diazePAM 5 MG TABLET PO PRN ×2 (13:09→19:19)
[2023-08-24 15:24] LABS: EPI CELLS >36 /uL (0-25.1); HYALINE CASTS 0 /uL (0-3.1); PH,URINE 7.5 (5.0-8.0); URINE APPEARANCE CLEAR; URINE BACTERIA 510 /uL (0-1359); URINE BILIRUBIN NEGATIVE (NEGATIVE); URINE COLOR YELLOW; URINE GLUCOSE (UA) NEGATIVE (NEGATIVE); URINE KETONE NEGATIVE (NEGATIVE); URINE LEUK ESTERASE TRACE (NEGATIVE); URINE NITRITE NEGATIVE (NEGATIVE); URINE PROTEIN NEGATIVE (NEGATIVE); URINE RBC 7 /uL (0-23.9); URINE UROBILINOGEN 0.2 mg/dL (0.2-1.0); URINE WBC 37 /uL (0-25.8)
[2023-08-24] MEDS: THIAMINE HCL 100 MG TABLET (FP) PO SCH (22:30)
[2023-08-24] MEDS: MIRTAZAPINE 15 MG TABLET (FP) PO SCH (22:31)
[2023-08-24] MEDS: MELATONIN 5 MG TABLETS PO SCH (22:31)
[2023-08-25] MEDS: DOXYCYCLINE HYCLATE 100 MG TABLET PO SCH ×2 (05:48→17:49)
[2023-08-25] MEDS: hydrOXYzine PAMOATE 25 MG CAPSULE (FP) PO PRN ×3 (05:50→21:40)
[2023-08-25] MEDS: BACITRACIN 0.9 GM PACKET TP SCH (09:58)
[2023-08-25] MEDS: POTASSIUM CHLORIDE ORAL LIQUID 20 MEQ/15 ML PO SCH (09:59)
[2023-08-25] MEDS: NICOTINE 14 MG/24 HOURS TOPICAL PATCH TD SCH (10:00)
[2023-08-25] MEDS: PRENATAL VITAMINS W/ FOLIC ACID TABLET (FP) PO SCH (11:08)
[2023-08-25] MEDS: diazePAM 5 MG TABLET PO PRN ×2 (12:42→21:39)
[2023-08-25] MEDS ORDERED: METHOCARBAMOL 500 MG TABLET PO ONE (15:09)
[2023-08-25] MEDS: ACETAMINOPHEN 325 MG TABLET (FP) PO PRN (15:27)
[2023-08-25] MEDS: IBUPROFEN 600 MG TABLET (FP) PO PRN (18:16)
[2023-08-25] MEDS: MELATONIN 5 MG TABLETS PO SCH (21:37)
[2023-08-25] MEDS: THIAMINE HCL 100 MG TABLET (FP) PO SCH (21:38)
[2023-08-25] MEDS: MIRTAZAPINE 15 MG TABLET (FP) PO SCH (21:38)
[2023-08-26] MEDS: DOXYCYCLINE HYCLATE 100 MG TABLET PO SCH (05:19)
[2023-08-26] MEDS: hydrOXYzine PAMOATE 25 MG CAPSULE (FP) PO PRN (05:20)
[2023-08-26] MEDS: BACITRACIN 0.9 GM PACKET TP SCH (09:29)
[2023-08-26] MEDS: NICOTINE 14 MG/24 HOURS TOPICAL PATCH TD SCH (09:31)
[2023-08-26] MEDS: POTASSIUM CHLORIDE ORAL LIQUID 20 MEQ/15 ML PO SCH (09:31)
[2023-08-26] MEDS ORDERED: methaDONE HCL 10 MG TABLET (FOR DETOX USE ONLY) PO ONE (10:00)
[2023-08-26] MEDS: PRENATAL VITAMINS W/ FOLIC ACID TABLET (FP) PO SCH (11:30)
[2023-08-26 11:38] VITALS: BP 101/69; PULSE 72; RESP 16; TEMP 98
== END 2023-08-26 10:05 | disposition home or self-care (01) | DRG 773 ==
LOC: YASAS 12:34 → Y6N 18:37
PROVIDERS: ADMIT Allergy & Immunology; ATTEND Surgery
PROC: HZ2ZZZZ Detoxification Services for Substance Abuse Treatment (ICD-10-PCS; principal; 2023-08-21)
DX: F11.23 Opioid dependence with withdrawal (principal); F14.20 Cocaine dependence, uncomplicated; F16.20 Hallucinogen dependence, uncomplicated; F12.20 Cannabis dependence, uncomplicated; F17.210 Nicotine dependence, cigarettes, uncomplicated; F19.282 Other psychoactive substance dependence with psychoactive substance-induced sleep disorder; F19.24 Other psychoactive substance dependence with psychoactive substance-induced mood disorder; F31.9 Bipolar disorder, unspecified; F43.10 Post-traumatic stress disorder, unspecified; F41.9 Anxiety disorder, unspecified; F42.4 Excoriation (skin-picking) disorder; E87.6 Hypokalemia; L98.8 Other specified disorders of the skin and subcutaneous tissue; Z62.810 Personal history of physical and sexual abuse in childhood; Z91.410 Personal history of adult physical and sexual abuse; Z28.310 Unvaccinated for COVID-19; Z28.9 Immunization not carried out for unspecified reason; Z88.8 Allergy status to other drugs, medicaments and biological substances
CPT/HCPCS: 36415; 80053; 80307; 81003; 81025; 85027; 86780; 87635; 87811